=== PATIENT | female | born 1990 ===

== ENCOUNTER 2016-12-21 09:02 | Emergency (ER) | payer MEDICAID, OTHER ==
[2016-12-21 09:24] VITALS: O2SAT 96
[2016-12-21] MEDS ORDERED: Naproxen 550 mg Tab PO STA (09:41)
[2016-12-21] MEDS ORDERED: Naproxen 550 mg Tab PO ONE (09:48)
--- NOTE | 2016-12-21 09:51 | RAD ---
HISTORY: COUGH, FEVER COMPARISON: No prior. TECHNIQUE: Chest PA and lateral FINDINGS: LUNGS: No active pulmonary disease. PLEURA: No significant pleural effusion identified. No pneumothorax apparent. CARDIOVASCULAR: Normal. OSSEOUS STRUCTURES: No significant abnormalities. VISUALIZED UPPER ABDOMEN: Normal. OTHER FINDINGS: None. IMPRESSION: No active disease.
[2016-12-21 11:04] VITALS: BP 112/75; PULSE 107; RESP 20; TEMP 100.4
--- NOTE | 2016-12-21 11:09 | C.PDOC ---
History Of Present Illness 26 year old female presents to the ED with complaints of fever, generalized body aches, sore throat, and runny nose since yesterday. Patient denies vomiting , diarrhea, abdominal pain, dysuria/hematuria, or sick contacts. Time Seen by Provider: 12/21/16 09:20 Chief Complaint (Nursing): ENT Problem History Per: Patient History/Exam Limitations: None Onset/Duration Of Symptoms: Days (1 day ) Current Symptoms Are (Timing): Still Present Quality (Mouth/Throat): Other (sore throat ) Symptoms Have Been: Continuous Severity: Moderate Recent Aspirin Use: No Past Medical History Reviewed: Historical Data, Nursing Documentation, Vital Signs Vital Signs: Last Vital Signs Temp 100.4 F H 12/21/16 11:05 Pulse 107 H 12/21/16 11:05 Resp 20 12/21/16 11:05 BP 112/75 12/21/16 11:05 Pulse Ox 96 12/21/16 12:14 - Medical History PMH: No Chronic Diseases Family History: States: No Known Family Hx - Social History Hx Alcohol Use: No Hx Substance Use: No - Immunization History Hx Tetanus Toxoid Vaccination: No Hx Influenza Vaccination: No Hx Pneumococcal Vaccination: No Review Of Systems Except As Marked, All Systems Reviewed And Found Negative. Constitutional: Positive for: Fever, Other (generalized body aches ). Negative for: Chills ENT: Positive for: Nose Congestion, Other (sore throat ) Cardiovascular: Negative for: Chest Pain, Palpitations Respiratory: Positive for: Cough. Negative for: Shortness of Breath Gastrointestinal: Negative for: Nausea, Vomiting, Abdominal Pain, Diarrhea Genitourinary: Negative for: Dysuria, Hematuria Skin: Negative for: Rash Physical Exam - Physical Exam Appears: Non-toxic, Other (appears uncomfortable ) Skin: Warm, Dry, Other (Patient is warm to touch ) Head: Normacephalic Eye(s): bilateral: Normal Inspection Nose: Discharge (rhinorrhea ) Oral Mucosa: Moist Throat: Erythema (Mild pharyngeal erythema ), No Exudate, Other (No swelling of the tonsils, uvula midline and normal appearance ) Neck: Supple Lymphatic: No Adenopathy Cardiovascular: Rhythm Regular (tachycardic and regular) Respiratory: Normal Breath Sounds, No Rales, No Rhonchi, No Stridor, No Wheezing , Other (coughing ocassionally but speaking in full sentences.) Gastrointestinal/Abdominal: Normal Exam, Bowel Sounds, Soft, No Tenderness Neurological/Psych: Oriented x3 ED Course And Treatment O2 Sat by Pulse Oximetry: 96 (RA) Pulse Ox Interpretation: Normal - Radiology CXR: Interpreted by Me, Viewed By Me CXR Interpretation: Yes: No Acute Disease. No: Infiltrates Progress Note: CXR and Influenza swab ordered and reviewed. Patient given PO Naprosyn. Reevaluation Time: 11:10 Reassessment Condition: Improved (Patient reassessed, is resting comfortably, states she feels better. Vitals have improved. CXR and influenza swab (-). Patient reassurred that symptoms are likely viral and self limiting, and treatment is supportive. Rxs given for Naprosyn, Tessalon and chlorapseptic spray. Patient instructed to drink plenty of fluids and to follow up with PMD/ clinic in 1-2 days. She understands she should return to ED if symptoms worsen. ) Disposition Counseled Patient/Family Regarding: Studies Performed, Diagnosis, Need For Followup, Rx Given - Disposition Referrals: Miriam Byrne MD [Medical Doctor] - Disposition: HOME/ ROUTINE Disposition Time: 11:10 Condition: STABLE Additional Instructions: SEGUIMIENTO CON ROBBINS MDICO EN 1-2 MACIAS USE [facility] SEGN SEA DIRIGIDO BEBER MUCHO LQUIDO REGRESAR A LA ASHLEY DE EMERGENCIA SI LOS SNTOMAS EMPEORARAN Prescriptions: Benzonatate [Tessalon Perles] 100 mg PO BID PRN #15 sgl PRN Reason: Cough Naproxen 375 mg PO BID PRN #20 tablet PRN Reason: pain Phenol/Glycerin [Chloraseptic [place]] 1 spray MM Q6 PRN #1 spray PRN Reason: THROAT PAIN Instructions: Viral Syndrome (ED) Forms: [facility] (Divehi), Work Excuse Print Language: TURKMEN - POA Present On Arrival: None - Clinical Impression Clinical Impression: Acute viral syndrome - Scribe Statement The provider has reviewed the documentation as recorded by the Scribe Shoshana Pantoja All medical record entries made by the Scribe were at my direction and personally dictated by me. I have reviewed the chart and agree that the record accurately reflects my personal performance of the history, physical exam, medical decision making, and the department course for this patient. I have also personally directed, reviewed, and agree with the discharge instructions and disposition.
== END 2016-12-21 11:20 | disposition home or self-care (01) ==
LOC: C.ER 09:02
DX: B34.9 Viral infection, unspecified (principal)